=== PATIENT | female | born 1960 | race African-American/Black ===

== ENCOUNTER 2016-06-01 18:37 | Emergency (ER) | payer SELFPAY ==
[~2016-06-01] VITALS: Ht 170.2 cm; Wt 79.0 kg
[2016-06-01 19:11] VITALS: BP 144/83; PULSE 69; RESP 18; TEMP 98.5; O2SAT 100
[2016-06-01] MEDS ORDERED: AMLO10TA2 PO (21:19)
[2016-06-01] MEDS ORDERED: LIAL1.2T PO (21:19)
--- NOTE | 2016-06-01 21:50 | PD ---
HPI Chief Complaint: Cold / Flu Symptoms Time Seen by Provider: 21:48 Travel History International Travel<30 days: No Contact w/Intl Traveler<30days: No Traveled to known affect area: No History of Present Illness HPI 56-year-old female presents to the emergency department for evaluation of cough , nasal congestion, headache and sore throat for 1 day. States her symptoms began last night. She denies any fever, chills, nausea, vomiting, chest pain, shortness of breath. States she's been taking [id number] Mucinex and cough drops with minimal improvement of symptoms. States that she has had some coworkers with similar symptoms recently. Denies any history of lung disease or asthma. Denies any smoking history. Symptoms are mild. No aggravating or alleviating factors. No other complaints. PFSH Past Medical History Cardiovascular Problems: Yes (MURMUR) Gastrointestinal Disorders: Yes (ULCERATIVE COLITIS) Hypertension: Yes Influenza Vaccination: No ?: Not Past Surgical History Surgical History: No Previous Surgery Social History Alcohol Use: Yes (RARELY) Tobacco Use: No Allergies-Medications (Allergen,Severity, Reaction): Coded Allergies: Sulfa (Verified Allergy, Unknown, HIVES, 06/01/16) Reported Meds & Prescriptions Reported Meds & Active Scripts Active Reported Lialda (Mesalamine) 1.2 Gm Tabdr Unknown Dose PO DAILY Take with a meal. Amlodipine (Amlodipine Besylate) 10 Mg Tab 10 Mg PO DAILY Review of Systems Except as stated in HPI: all other systems reviewed are Neg Physical Exam Narrative GENERAL: Well-nourished and well-developed pleasant patient in no acute distress who is nontoxic appearing. SKIN: Warm and dry. HEAD: Normocephalic and atraumatic. EYES: No injection, drainage, or hyphema noted. PERRLA. EOMI. ENT: No nasal drainage noted. Oropharynx is clear and the TMs are normal with good landmarks. NECK: Supple and the trachea is midline. CARDIOVASCULAR: Regular rate and rhythm. RESPIRATORY: Breath sounds are equal bilaterally with no accessory muscle use, wheezing, rhonchi, or crackles. NEUROLOGICAL: Awake, alert, and oriented. Normal speech and gait. Cranial nerves are grossly intact. Data Data Last Documented VS Vital Signs Date Time Temp Pulse Resp B/P Pulse Ox O2 Delivery O2 Flow Rate FiO2 06/01/16 19:11 98.5 69 18 144/[address] [facility] Medical Decision Making Medical Screen Exam Complete: Yes Emergency Medical Condition: Yes Differential Diagnosis URI versus viral illness versus influenza Narrative Course 56-year-old female presents to the emergency department for evaluation of cough and cold symptoms for one day. Patient is afebrile, vital signs are stable. Physical examination essentially unremarkable. Patient appears well overall. Discussed supportive care with the patient. This is a viral upper respiratory infection. Advised follow-up with her PCP as needed. Patient verbalizes understanding and agreement with treatment plan. Diagnosis Primary Impression: Upper respiratory infection Qualified Code: J06.9 - Viral upper respiratory tract infection Referrals: Primary Care Physician Patient Instructions: General Instructions, Upper Respiratory Infection (ED) Departure Forms: Tests/Procedures, Work Release Enter return to work date: Jun 03, 2016 Additional Instructions: Rest. Continue [id number]-[id number] mucinex and cough drops. Follow-up with your Primary Care Physician as needed. Return to the ED for any acute worsening of symptoms. Med/Other Pt SpecificInfo: No Change to Meds Disposition: 01 DISCHARGE HOME Condition: Stable Lindy Orona Jun 01, 2016 21:50
== END 2016-06-01 21:59 | disposition home or self-care (01) ==
LOC: PHED 18:37 → PHEFT 21:59
DX: J06.9 Acute upper respiratory infection, unspecified (principal); B97.89 Other viral agents as the cause of diseases classified elsewhere; R05 Cough; R51 Headache; I10 Essential (primary) hypertension; Z86.79 Personal history of other diseases of the circulatory system; Z87.19 Personal history of other diseases of the digestive system
CPT/HCPCS: 99283